=== PATIENT | male | born 1980 | race Caucasian/White ===

== ENCOUNTER → 2019-06-08 | Outpatient (CLI) | payer OTHER ==
[~2019-06-08] MED LIST: BACTRIM DS 8001 TA1 PO; CLEOCIN HCL150 MG PO; IBU-8800 MG PO; IBU800 MG PO; KEFLEX500 MG PO; MOTRIN800 MG PO; PRILOSEC20 M1 PO; ZESTRIL20 MG PO
== END | disposition home or self-care (01) ==
LOC: CARD 12:00
DX: R07.9 Chest pain, unspecified (principal)

== ENCOUNTER → 2020-02-09 | Outpatient (CLI) | payer OTHER ==
[2020-02-09 14:27] LABS: BASO # 0.1 10*3/uL (0.0-0.1); BASO % 0.5 % (0.0-1.0); EOS # 0.2 10*3/uL (0.0-0.4); EOS % 2.3 % (1.0-4.0); HEMATOCRIT 42.4 % (42.0-52.0); LYMPH # 2.6 10*3/uL (1.3-4.4); LYMPH % 27.1 % (27.0-41.0); MEAN CELL VOLUME 87.8 fl (80.0-94.0); MEAN CORPUSCULAR HGB 29.6 pg (27.0-31.0); MEAN CORPUSCULAR HGB CONC 33.7 g/dl (33.0-37.0); MONO # 0.8 10*3/uL (0.1-1.0); MONO % 7.8 % (3.0-9.0); NEUT % 61.9 % (47.0-73.0); PLATELET COUNT AUTOMATED 234 10*3/uL (130-400); RED BLOOD COUNT 4.83 10*6/uL (4.50-5.90); WHITE BLOOD COUNT 9.7 10*3/uL (4.8-10.8)
[2020-02-10 07:03] LABS: HEP B CORE AB, IGM Negative (Negative); HEPATITIS B SURFACE AG Negative (Negative); HEPATITIS C VIRUS ANTIBODY <0.1 s/co (0.0-0.9)
[2020-02-10 09:08] LABS: RHEUMATOID ARTHRITIS FACTOR <10.0 IU/mL (0.0-13.9)
[2020-02-11 19:03] LABS: CCP ANTIBODIES IGG/IGA 7 units (0-19)
[2020-02-12 13:03] LABS: ANTI-RNP ANTIBODIES <0.2 AI (0.0-0.9); PTT-LA 53.1 sec (0.0-51.9)
[2020-02-13 08:05] LABS: DVVTMIXRFX CHG; LUPUS DRVVT 56.4 sec (0.0-47.0); PTT-LA MIX 46.5 sec (0.0-48.9)
[2020-02-13 13:08] LABS: HEXAGONAL PHASE PHOSPHOLIPID 0 sec (0-11)
[2020-02-13 14:04] LABS: LUPUS REFLEX INTERPRETATION Comment: (.)
[2020-02-16 11:41] LABS: HLA-B27 ANTIGEN Negative (.)
== END | disposition home or self-care (01) ==
LOC: LAB 13:50
PROVIDERS: Orthopaedic Surgery
DX: I10 Essential (primary) hypertension (principal); M25.50 Pain in unspecified joint

== ENCOUNTER → 2021-05-26 | Outpatient (CLI) | payer OTHER | END | disposition home or self-care (01) | LOC: MRI 08:00 | PROVIDERS: ATTEND Physician Assistant | DX: M47.26 Other spondylosis with radiculopathy, lumbar region (principal); M48.061 Spinal stenosis, lumbar region without neurogenic claudication ==

== ENCOUNTER → 2021-12-10 | Outpatient (CLI) | payer OTHER ==
[2021-12-10 09:42] LABS: BASO # 0.1 10*3/uL (0.0-0.1); BASO % 0.5 % (0.0-1.0); EOS # 0.2 10*3/uL (0.0-0.4); EOS % 1.8 % (1.0-4.0); HEMATOCRIT 39.1 % (42.0-52.0); LYMPH # 2.5 10*3/uL (1.3-4.4); LYMPH % 25.3 % (27.0-41.0); MEAN CELL VOLUME 84.6 fl (80.0-94.0); MEAN CORPUSCULAR HGB 29.2 pg (27.0-31.0); MEAN CORPUSCULAR HGB CONC 34.5 g/dl (33.0-37.0); MEAN PLATELET VOLUME 9.9 fl (9.6-12.3); MONO # 0.9 10*3/uL (0.1-1.0); MONO % 8.8 % (3.0-9.0); NEUT # 6.2 10*3/uL (2.3-7.9); NEUT % 63.1 % (47.0-73.0); PLATELET COUNT AUTOMATED 264 10*3/uL (130-400); RED BLOOD COUNT 4.62 10*6/uL (4.50-5.90); RED CELL DISTRI WIDTH 12.8 % (0-14.5); RETICULOCYTE % 1.48 % (0.50-2.50); WHITE BLOOD COUNT 9.8 10*3/uL (4.8-10.8)
[2021-12-10 09:44] LABS: BILIRUBIN Negative (Negative); BLOOD Negative (Negative); CLARITY Clear (Clear); COLOR Yellow (Yellow); GLUCOSE 3+ (Negative); KETONE Negative (Negative); LEUKO ESTERASE Negative (Negative); NITRITE Negative (Negative); SPECIFIC GRAVITY >= 1.030 (1.001-1.030); UROBILINOGEN 0.2 E.U./dl (0.0-1.0)
[2021-12-10 10:03] LABS: MUCOUS 1+; WBC 0-2 wbc/hpf (0-5)
[2021-12-10 10:04] LABS: BUN 21 mg/dl (7-24); CHLORIDE 106 mmol/L (98-107); CHOLESTEROL 289 mg/dL (<200); GAMMA GLUTAMYL TRANSPEPTIDASE 57 U/L (15-85); SODIUM 134 mmol/L (136-145); THYROXINE (T4) TOTAL 9.6 ug/dl (4.5-12.1); TRIGLYCERIDES 307 mg/dl (<150)
[2021-12-10 10:11] LABS: FERRITIN 377.9 ng/mL (22.0-322.0); VITAMIN D, 25-HYDROXY 10.5 ng/mL (30-100)
[2021-12-10 10:14] LABS: ALKALINE PHOSPHATASE 112 U/L (45-117); CREATININE 1.12 mg/dL (0.70-1.30); IRON 66 ug/dL (65-175); LDL CHOLESTEROL 193 mg/dL (9-159); SGOT/AST 12 IU/L (3-35); SGPT/ALT 34 U/L (12-78); T3 UPTAKE 33 % (31-39); TOTAL IRON BINDING CAPACITY 232 ug/dl (250-450); TOTAL PROTEIN 7.7 gm/dL (6.4-8.2)
[2021-12-11 05:06] LABS: RHEUMATOID FACTOR <10.0 IU/mL (<14.0)
[2021-12-11 15:07] LABS: ANTI-DSDNA ANTIBODIES <1 IU/mL (0-9)
== END | disposition home or self-care (01) ==
LOC: LAB 08:56
PROVIDERS: ATTEND Family Medicine
DX: M25.512 Pain in left shoulder (principal); E78.5 Hyperlipidemia, unspecified; R53.83 Other fatigue; R79.89 Other specified abnormal findings of blood chemistry; E55.9 Vitamin D deficiency, unspecified; R74.8 Abnormal levels of other serum enzymes

== ENCOUNTER → 2021-12-24 | Outpatient (CLI) | payer OTHER | END | disposition home or self-care (01) | LOC: RAD 12:45 | PROVIDERS: ATTEND Family Medicine | DX: M25.512 Pain in left shoulder (principal) ==

== ENCOUNTER → 2021-12-31 | Outpatient (CLI) | payer OTHER ==
[2021-12-31 13:33] LABS: BASO # 0.1 10*3/uL (0.0-0.1); BASO % 0.5 % (0.0-1.0); EOS # 0.2 10*3/uL (0.0-0.4); EOS % 1.8 % (1.0-4.0); HEMATOCRIT 40.7 % (42.0-52.0); LYMPH # 2.6 10*3/uL (1.3-4.4); LYMPH % 28.4 % (27.0-41.0); MEAN CELL VOLUME 86.4 fl (80.0-94.0); MEAN CORPUSCULAR HGB 29.1 pg (27.0-31.0); MEAN CORPUSCULAR HGB CONC 33.7 g/dl (33.0-37.0); MEAN PLATELET VOLUME 9.9 fl (9.6-12.3); MONO # 0.7 10*3/uL (0.1-1.0); MONO % 7.1 % (3.0-9.0); NEUT # 5.8 10*3/uL (2.3-7.9); NEUT % 61.9 % (47.0-73.0); PLATELET COUNT AUTOMATED 276 10*3/uL (130-400); RED BLOOD COUNT 4.71 10*6/uL (4.50-5.90); RED CELL DISTRI WIDTH 12.9 % (0-14.5); WHITE BLOOD COUNT 9.3 10*3/uL (4.8-10.8)
[2021-12-31 13:52] LABS: ALKALINE PHOSPHATASE 117 U/L (45-117); BUN 16 mg/dl (7-24); CHLORIDE 107 mmol/L (98-107); LIPASE 99 U/L (73-393); POTASSIUM 4.4 mmol/L (3.5-5.1); SGOT/AST 12 IU/L (3-35); SGPT/ALT 31 U/L (12-78); SODIUM 137 mmol/L (136-145); TOTAL PROTEIN 8.1 gm/dL (6.4-8.2)
== END | disposition home or self-care (01) ==
LOC: LAB 12:55
PROVIDERS: ATTEND Nurse Practitioner Family
DX: R10.9 Unspecified abdominal pain (principal)

== ENCOUNTER 2022-02-25 16:14 | Emergency (ER) | payer OTHER ==
[~2022-02-25] VITALS: Ht 180.3 cm; Wt 121.6 kg
[2022-02-25] MEDS ORDERED: CYCLOBENZAPRINE10 MG PO (16:59)
== END 2022-02-26 00:45 | disposition left against medical advice (07) ==
LOC: ED 16:14
DX: G83.4 Cauda equina syndrome (principal); Z79.899 Other long term (current) drug therapy; Z88.0 Allergy status to penicillin

== ENCOUNTER 2022-06-16 19:47 | Emergency (ER) | payer OTHER ==
[~2022-06-16] VITALS: Ht 177.8 cm; Wt 120.2 kg
[~2022-06-16 19:47] MED LIST changes: +CYCLOBENZAPRINE10 MG PO
[2022-06-16 21:08] LABS: BASO # 0.1 10*3/uL (0.0-0.1); BASO % 0.5 % (0.0-1.0); EOS # 0.1 10*3/uL (0.0-0.4); EOS % 1.3 % (1.0-4.0); HEMATOCRIT 40.2 % (42.0-52.0); LYMPH # 1.5 10*3/uL (1.3-4.4); MEAN CELL VOLUME 86.5 fl (80.0-94.0); MEAN CORPUSCULAR HGB CONC 33.6 g/dl (33.0-37.0); MEAN PLATELET VOLUME 9.4 fl (9.6-12.3); MONO # 0.9 10*3/uL (0.1-1.0); MONO % 9.2 % (3.0-9.0); NEUT # 7.5 10*3/uL (2.3-7.9); NEUT % 73.8 % (47.0-73.0); PLATELET COUNT AUTOMATED 235 10*3/uL (130-400); RED BLOOD COUNT 4.65 10*6/uL (4.50-5.90); RED CELL DISTRI WIDTH 12.2 % (0-14.5); WHITE BLOOD COUNT 10.2 10*3/uL (4.8-10.8)
[2022-06-16 21:27] LABS: ALKALINE PHOSPHATASE 105 U/L (45-117); BUN 15 mg/dl (7-24); CHLORIDE 105 mmol/L (98-107); CREATININE 1.21 mg/dL (0.70-1.30); LIPASE 71 U/L (73-393); POTASSIUM 3.5 mmol/L (3.5-5.1); SGOT/AST 12 IU/L (3-35); SGPT/ALT 27 U/L (12-78); SODIUM 139 mmol/L (136-145); TOTAL PROTEIN 7.8 gm/dL (6.4-8.2)
[2022-06-16 21:27] LABS: BILIRUBIN Negative (Negative); BLOOD Negative (Negative); CLARITY Clear (Clear); COLOR Yellow (Yellow); GLUCOSE Negative (Negative); KETONE Negative (Negative); LEUKO ESTERASE Negative (Negative); NITRITE Negative (Negative); PH 5.5 (4.5-8.0); UROBILINOGEN 0.2 E.U./dl (0.0-1.0)
[2022-06-16 21:43] LABS: BACTERIA TRACE; EPITHELIAL CELLS 0-2; RBC 0-2 rbc/hpf (0-2)
[2022-06-16] MEDS ORDERED: CYCLOBENZAPRINE10 MG PO (22:48)
[2022-06-16] MEDS ORDERED: MEDROL DOSEPAK4 MG PO (22:48)
== END 2022-06-16 23:14 | disposition home or self-care (01) ==
LOC: ED 19:47
PROVIDERS: Nurse Practitioner Family
DX: M62.830 Muscle spasm of back (principal); M54.50 Low back pain, unspecified; R10.31 Right lower quadrant pain; Z79.899 Other long term (current) drug therapy; Z88.0 Allergy status to penicillin

== ENCOUNTER → 2022-07-15 | Outpatient (CLI) | payer OTHER ==
[~2022-07-15] MED LIST changes: +MEDROL DOSEPAK4 MG PO
[2022-07-15 19:48] LABS: BILIRUBIN Negative (Negative); BLOOD Negative (Negative); CLARITY Clear (Clear); COLOR Yellow (Yellow); GLUCOSE 2+ (Negative); KETONE Negative (Negative); LEUKO ESTERASE Negative (Negative); NITRITE Negative (Negative); PH 5.5 (4.5-8.0); SPECIFIC GRAVITY 1.025 (1.001-1.030)
[2022-07-15 19:58] LABS: ALKALINE PHOSPHATASE 107 U/L (45-117); BUN 23 mg/dl (7-24); CHLORIDE 107 mmol/L (98-107); CHOLESTEROL 179 mg/dL (<200); CREATININE 0.95 mg/dL (0.70-1.30); POTASSIUM 3.7 mmol/L (3.5-5.1); SGOT/AST 10 IU/L (3-35); SGPT/ALT 25 U/L (12-78); SODIUM 139 mmol/L (136-145); TOTAL PROTEIN 8.1 gm/dL (6.4-8.2); TRIGLYCERIDES 162 mg/dl (<150)
[2022-07-15 19:59] LABS: FREE T4 0.96 ng/dl (0.76-1.46); LDL CHOLESTEROL 109 mg/dL (9-159)
[2022-07-15 20:07] LABS: VITAMIN D, 25-HYDROXY 55.1 ng/mL (30-100)
[2022-07-15 20:18] LABS: HYALINE CAST 0-2; MUCOUS 1+
[2022-07-15 20:19] LABS: BACTERIA TRACE; EPITHELIAL CELLS 0-2; WBC 0-2 wbc/hpf (0-5)
== END ==
LOC: LAB 18:28
PROVIDERS: ATTEND Internal Medicine
DX: E11.65 Type 2 diabetes mellitus with hyperglycemia (principal); E55.9 Vitamin D deficiency, unspecified; E78.5 Hyperlipidemia, unspecified; R00.0 Tachycardia, unspecified; G62.9 Polyneuropathy, unspecified

== ENCOUNTER → 2023-01-11 | Outpatient (CLI) | payer OTHER ==
[2023-01-11 10:33] LABS: BILIRUBIN Negative (Negative); BLOOD Negative (Negative); CLARITY Clear (Clear); COLOR Yellow (Yellow); GLUCOSE Trace (Negative); KETONE Negative (Negative); LEUKO ESTERASE Negative (Negative); NITRITE Negative (Negative); PH 5.5 (4.5-8.0); SPECIFIC GRAVITY 1.025 (1.001-1.030)
[2023-01-11 10:36] LABS: HEMATOCRIT 41.2 % (42.0-52.0); MEAN CELL VOLUME 85.1 fl (80.0-94.0); MEAN CORPUSCULAR HGB 29.1 pg (27.0-31.0); MEAN CORPUSCULAR HGB CONC 34.2 g/dl (33.0-37.0); MEAN PLATELET VOLUME 9.3 fl (9.6-12.3); PLATELET COUNT AUTOMATED 295 10*3/uL (130-400); RED BLOOD COUNT 4.84 10*6/uL (4.50-5.90); RED CELL DISTRI WIDTH 13.5 % (0-14.5); RETICULOCYTE % 0.89 % (0.50-2.50); WHITE BLOOD COUNT 12.5 10*3/uL (4.8-10.8)
[2023-01-11 10:44] LABS: BACTERIA TRACE; EPITHELIAL CELLS 0-2; RBC 0-2 rbc/hpf (0-2); WBC 0-2 wbc/hpf (0-5)
[2023-01-11 11:10] LABS: ATYPICAL LYMPHS 2 % (0-0); PLATELET SUFFICIENCY NORMAL (NORMAL); POLYCHROMASIA SLIGHT; TOTAL CELLS COUNTED 100 #CELLS; TOXIC GRANULATION SLIGHT; VACUOLATION OF NEUTROPHILS SLIGHT
[2023-01-11 11:11] LABS: ALKALINE PHOSPHATASE 119 U/L (46-116); BUN 14 mg/dl (9-23); CHLORIDE 104 mmol/L (98-107); CHOLESTEROL 151 mg/dL (<200); GAMMA GLUTAMYL TRANSPEPTIDASE 46 U/L (0-73); LDL CHOLESTEROL 96 mg/dL (9-159); POTASSIUM 4.1 mmol/L (3.4-5.1); SGPT/ALT 24 U/L (10-49); THYROID STIM HORMONE (HS) 0.337 uIU/ml (0.550-4.780); THYROXINE (T4) TOTAL 7.6 ug/dl (4.5-10.9); TOTAL PROTEIN 8.1 gm/dL (6.0-8.0); TRIGLYCERIDES 124 mg/dl (<150); URIC ACID 5.7 mg/dL (3.7-9.2)
[2023-01-11 12:17] LABS: VITAMIN D, 25-HYDROXY 64.9 ng/mL (30-100)
[2023-01-12 02:06] LABS: TOTAL PROTEIN, SERUM 7.4 g/dL (6.0-8.5)
[2023-01-12 13:07] LABS: ANTI-DSDNA ANTIBODIES <1 IU/mL (0-9)
[2023-01-12 15:07] LABS: A/G RATIO 0.9 (0.7-1.7); ALBUMIN 3.4 g/dL (2.9-4.4); ALPHA-1-GLOBULIN 0.3 g/dL (0.0-0.4); ALPHA-2-GLOBULIN 1.3 g/dL (0.4-1.0); BETA GLOBULIN 1.1 g/dL (0.7-1.3); GAMMA GLOBULIN 1.3 g/dL (0.4-1.8); M-SPIKE Not Observed g/dL (Not Observed)
== END | disposition home or self-care (01) ==
LOC: LAB 10:11
PROVIDERS: ATTEND Family Medicine
DX: E78.5 Hyperlipidemia, unspecified (principal); E55.9 Vitamin D deficiency, unspecified; R79.89 Other specified abnormal findings of blood chemistry; R53.83 Other fatigue; R74.8 Abnormal levels of other serum enzymes

== ENCOUNTER → 2023-01-14 | Outpatient (CLI) | payer OTHER ==
[2023-01-14 09:07] LABS: BILIRUBIN Negative (Negative); BLOOD Negative (Negative); CLARITY Clear (Clear); COLOR Yellow (Yellow); GLUCOSE Negative (Negative); KETONE Negative (Negative); LEUKO ESTERASE Negative (Negative); NITRITE Negative (Negative); PH 5.5 (4.5-8.0); UROBILINOGEN 0.2 E.U./dl (0.0-1.0)
[2023-01-14 09:27] LABS: ALKALINE PHOSPHATASE 113 U/L (46-116); BUN 14 mg/dl (9-23); CHLORIDE 104 mmol/L (98-107); CHOLESTEROL 150 mg/dL (<200); LDL CHOLESTEROL 97 mg/dL (9-159); POTASSIUM 4.4 mmol/L (3.4-5.1); SGPT/ALT 28 U/L (10-49); TRIGLYCERIDES 138 mg/dl (<150)
[2023-01-14 09:28] LABS: BACTERIA TRACE; EPITHELIAL CELLS 0-2; RBC 0-2 rbc/hpf (0-2)
== END | disposition home or self-care (01) ==
LOC: LAB 08:33
PROVIDERS: ATTEND Internal Medicine
DX: E11.65 Type 2 diabetes mellitus with hyperglycemia (principal); G62.9 Polyneuropathy, unspecified; E55.9 Vitamin D deficiency, unspecified; E78.5 Hyperlipidemia, unspecified

== ENCOUNTER → 2023-08-16 | Outpatient (CLI) | payer OTHER ==
[2023-08-16 11:47] LABS: BASO % 0.4 % (0.0-1.0); BILIRUBIN Negative (Negative); BLOOD Negative (Negative); CLARITY Clear (Clear); COLOR Yellow (Yellow); EOS # 0.2 10*3/uL (0.0-0.4); EOS % 2.3 % (1.0-4.0); GLUCOSE Trace (Negative); HEMATOCRIT 42.2 % (42.0-52.0); KETONE Negative (Negative); LEUKO ESTERASE Negative (Negative); LYMPH # 2.2 10*3/uL (1.3-4.4); MEAN CELL VOLUME 86.5 fl (80.0-94.0); MEAN CORPUSCULAR HGB 28.9 pg (27.0-31.0); MEAN CORPUSCULAR HGB CONC 33.4 g/dl (33.0-37.0); MEAN PLATELET VOLUME 9.9 fl (9.6-12.3); MONO # 0.7 10*3/uL (0.1-1.0); MONO % 7.7 % (3.0-9.0); NEUT # 5.9 10*3/uL (2.3-7.9); NEUT % 65.4 % (47.0-73.0); NITRITE Negative (Negative); PH 5.5 (4.5-8.0); PLATELET COUNT AUTOMATED 247 10*3/uL (130-400); RED BLOOD COUNT 4.88 10*6/uL (4.50-5.90); RED CELL DISTRI WIDTH 12.5 % (0-14.5); RETICULOCYTE % 1.23 % (0.50-2.50); UROBILINOGEN 0.2 E.U./dl (0.0-1.0)
[2023-08-16 12:09] LABS: MUCOUS TRACE; RBC 0-2 rbc/hpf (0-2)
[2023-08-16 12:14] LABS: ALKALINE PHOSPHATASE 127 U/L (46-116); BUN 16 mg/dl (9-23); CHLORIDE 104 mmol/L (98-107); CHOLESTEROL 153 mg/dL (<200); GAMMA GLUTAMYL TRANSPEPTIDASE 40 U/L (0-73); LDL CHOLESTEROL 95 mg/dL (9-159); POTASSIUM 4.3 mmol/L (3.4-5.1); SGPT/ALT 30 U/L (5-49); T3 UPTAKE 29.1 % (22.4-36.7); TOTAL PROTEIN 7.8 gm/dL (6.0-8.0); TRIGLYCERIDES 140 mg/dl (<150)
[2023-08-16 12:37] LABS: VITAMIN D, 25-HYDROXY 71.4 ng/mL (30-100)
== END | disposition home or self-care (01) ==
LOC: LAB 11:22
PROVIDERS: ATTEND Family Medicine
DX: R79.89 Other specified abnormal findings of blood chemistry (principal); E78.5 Hyperlipidemia, unspecified; R74.8 Abnormal levels of other serum enzymes; E55.9 Vitamin D deficiency, unspecified

== ENCOUNTER → 2023-09-13 | Outpatient (CLI) | payer OTHER | END | disposition home or self-care (01) | LOC: RAD 14:10 | PROVIDERS: ATTEND Family Medicine | DX: S69.92XA Unspecified injury of left wrist, hand and finger(s), initial encounter (principal); X58.XXXA Exposure to other specified factors, initial encounter; Y93.89 Activity, other specified; Y92.89 Other specified places as the place of occurrence of the external cause; Y99.8 Other external cause status ==

== ENCOUNTER → 2024-07-27 | Outpatient (CLI) | payer OTHER | END | disposition home or self-care (01) | LOC: RAD 13:12 | PROVIDERS: ATTEND Family Medicine | DX: S80.02XA Contusion of left knee, initial encounter (principal); M17.12 Unilateral primary osteoarthritis, left knee; X58.XXXA Exposure to other specified factors, initial encounter; Y93.89 Activity, other specified; Y92.89 Other specified places as the place of occurrence of the external cause; Y99.8 Other external cause status ==

== ENCOUNTER → 2024-09-26 | Outpatient (CLI) | payer OTHER ==
[2024-09-26 14:53] LABS: BASO % 0.4 % (0.0-1.0); EOS # 0.2 10*3/uL (0.0-0.4); EOS % 2.2 % (1.0-4.0); HEMATOCRIT 43.1 % (42.0-52.0); MEAN CELL VOLUME 84.7 fl (80.0-94.0); MEAN CORPUSCULAR HGB 28.5 pg (27.0-31.0); MEAN CORPUSCULAR HGB CONC 33.6 g/dl (33.0-37.0); MONO # 0.9 10*3/uL (0.1-1.0); MONO % 7.8 % (3.0-9.0); NEUT # 7.1 10*3/uL (2.3-7.9); PLATELET COUNT AUTOMATED 284 10*3/uL (130-400); RED BLOOD COUNT 5.09 10*6/uL (4.50-5.90); RED CELL DISTRI WIDTH 12.3 % (0-14.5); RETICULOCYTE % 1.28 % (0.50-2.50)
[2024-09-26 14:54] LABS: BILIRUBIN Negative (Negative); BLOOD Negative (Negative); CLARITY Clear (Clear); COLOR Yellow (Yellow); GLUCOSE 3+ (Negative); KETONE Negative (Negative); LEUKO ESTERASE Negative (Negative); NITRITE Negative (Negative); SPECIFIC GRAVITY 1.025 (1.001-1.030); UROBILINOGEN 0.2 E.U./dl (0.0-1.0)
[2024-09-26 15:04] LABS: EPITHELIAL CELLS 0-2; WBC 0-2 wbc/hpf (0-5)
[2024-09-26 15:17] LABS: ALKALINE PHOSPHATASE 118 U/L (46-116); BUN 20 mg/dl (9-23); CHLORIDE 100 mmol/L (98-107); CHOLESTEROL 320 mg/dL (<200); GAMMA GLUTAMYL TRANSPEPTIDASE 52 U/L (0-73); POTASSIUM 4.4 mmol/L (3.4-5.1); SGPT/ALT 29 U/L (5-49); TOTAL PROTEIN 8.1 gm/dL (6.0-8.0); TRIGLYCERIDES 541 mg/dl (<150)
[2024-09-26 15:43] LABS: VITAMIN D, 25-HYDROXY 28.7 ng/mL (30-100)
== END | disposition home or self-care (01) ==
LOC: LAB 14:21
PROVIDERS: ATTEND Family Medicine
DX: R79.89 Other specified abnormal findings of blood chemistry (principal); R53.83 Other fatigue; E78.5 Hyperlipidemia, unspecified; R74.8 Abnormal levels of other serum enzymes; E55.9 Vitamin D deficiency, unspecified

== ENCOUNTER → 2025-02-09 | Outpatient (CLI) | payer OTHER ==
[2025-02-09 11:28] LABS: BILIRUBIN Negative (Negative); BLOOD Negative (Negative); CLARITY Clear (Clear); COLOR Yellow (Yellow); GLUCOSE Negative (Negative); KETONE Negative (Negative); LEUKO ESTERASE Negative (Negative); NITRITE Negative (Negative); PH 5.5 (4.5-8.0); UROBILINOGEN 0.2 E.U./dl (0.0-1.0)
[2025-02-09 11:53] LABS: ALKALINE PHOSPHATASE 105 U/L (46-116); BUN 20 mg/dl (9-23); CHLORIDE 104 mmol/L (98-107); CHOLESTEROL 154 mg/dL (<200); FREE T4 0.97 ng/dl (0.89-1.76); LDL CHOLESTEROL 84 mg/dL (9-159); POTASSIUM 4.3 mmol/L (3.4-5.1); SGPT/ALT 23 U/L (5-49); TOTAL PROTEIN 7.6 gm/dL (6.0-8.0); TRIGLYCERIDES 186 mg/dl (<150)
[2025-02-09 12:07] LABS: VITAMIN D, 25-HYDROXY 68.3 ng/mL (30-100)
== END | disposition home or self-care (01) ==
LOC: LAB 10:35
PROVIDERS: ATTEND Internal Medicine
DX: E78.5 Hyperlipidemia, unspecified (principal); E11.65 Type 2 diabetes mellitus with hyperglycemia; E55.9 Vitamin D deficiency, unspecified; E04.9 Nontoxic goiter, unspecified; G62.9 Polyneuropathy, unspecified

== ENCOUNTER → 2025-05-31 | Outpatient (CLI) | payer OTHER ==
[2025-05-31 18:02] LABS: BILIRUBIN Negative (Negative); BLOOD Negative (Negative); CLARITY Clear (Clear); COLOR Yellow (Yellow); KETONE Negative (Negative); LEUKO ESTERASE Negative (Negative); NITRITE Negative (Negative); PH 5.5 (4.5-8.0); SPECIFIC GRAVITY 1.010 (1.001-1.030); UROBILINOGEN 0.2 E.U./dl (0.0-1.0)
[2025-05-31 18:23] LABS: BUN 19 mg/dl (9-23); LDL CHOLESTEROL 104 mg/dL (9-159); SGPT/ALT 27 U/L (5-49)
[2025-05-31 18:25] LABS: VITAMIN D, 25-HYDROXY 63.4 ng/mL (30-100)
== END | disposition home or self-care (01) ==
LOC: LAB 17:42
PROVIDERS: ATTEND Internal Medicine
DX: E11.65 Type 2 diabetes mellitus with hyperglycemia (principal); E55.9 Vitamin D deficiency, unspecified; E78.5 Hyperlipidemia, unspecified; G62.9 Polyneuropathy, unspecified